=== PATIENT | male | born 1980 | race Caucasian/White ===

== ENCOUNTER 2024-01-18 21:26 | Emergency (ER) | payer BC ==
[~2024-01-18 21:26] MED LIST: Iopamidol 370 76% 100 ML VIAL ONE
[2024-01-18 23:06] LABS: #Basophils 0.04 10x3/uL (0.0-0.2); #Eosinophils 0.14 10x3/uL (0.0-0.5); #Monocytes 0.61 10x3/uL (0.0-1.1); #Neutrophils 2.62 10x3/uL (1.5-8.4); %Basophils 0.8 % (0.0-2.0); %Eosinophils 2.7 % (0.0-6.0); %Lymphocytes 34.7 % (18.0-47.0); %Monocytes 11.6 % (0.0-10.0); Hematocrit 36.7 % (38.8-50.0); Hemoglobin 12.5 g/dL (13.5-17.5); Mean Corpuscular HGB CONC 34.1 g/dL (32.0-36.0); Mean Corpuscular Hemoglobin 29.8 pg (27.0-33.0); Mean Corpuscular Volume 87.4 fL (81.2-95.1); Mean Platelet Volume 8.4 fL (7.4-10.4); Platelet Count 316 10x3/uL (150-450); RBC Distribution Width 11.6 % (11.5-14.5); White Blood Cell (WBC) Count 5.2 10x3/uL (3.5-10.5)
[2024-01-18 23:21] LABS: ALT (SGPT) 18 U/L (8-55); AST (SGOT) 18 U/L (5-34); Albumin 4.3 g/dL (3.5-5.0); Alkaline Phosphatase 44 U/L (40-110); Anion Gap 11 mmol/L (10-20); BUN (Urea Nitrogen) 6 mg/dL (8.9-20.6); Bilirubin, Total 0.6 mg/dL (0.2-1.2); Calc. Creatinine Clearance 0 mL/min (70-130); Calcium 9.3 mg/dL (7.8-10.44); Carbon Dioxide 29 mmol/L (22-29); Chloride 98 mmol/L (98-107); Estimated GFR 115; Globulin 2.5 g/dL (2.4-3.5); Glucose 85 mg/dL (70-105); Potassium 3.7 mmol/L (3.5-5.1); Protein, Total 6.8 g/dL (6.0-8.3); Sodium 134 mmol/L (136-145)
== END 2024-01-19 02:48 | disposition home or self-care (01) ==
LOC: CSHERS 21:26
DX: K59.00 Constipation, unspecified (principal); I10 Essential (primary) hypertension; F17.220 Nicotine dependence, chewing tobacco, uncomplicated; F17.290 Nicotine dependence, other tobacco product, uncomplicated
CPT/HCPCS: 74177; 80053; 85025; 96360; Q9967

== ENCOUNTER 2024-01-20 20:04 | Inpatient (IN) | payer BC ==
[2024-01-20] MEDS ORDERED: Ketorolac Tromethamine 30 MG (1 mL) VIAL ONE (21:10)
[2024-01-20] MEDS ORDERED: Ondansetron PF 4 MG/2 ML Vial ONE ×2 (21:10→22:23)
[2024-01-20 21:13] LABS: #Basophils 0.04 10x3/uL (0.0-0.2); #Eosinophils 0.01 10x3/uL (0.0-0.5); #Monocytes 0.57 10x3/uL (0.0-1.1); #Neutrophils 6.66 10x3/uL (1.5-8.4); %Basophils 0.5 % (0.0-2.0); %Eosinophils 0.1 % (0.0-6.0); %Lymphocytes 13.2 % (18.0-47.0); %Monocytes 6.8 % (0.0-10.0); %Neutrophils 79.3 % (40.0-75.0); Hematocrit 37.8 % (38.8-50.0); Hemoglobin 12.8 g/dL (13.5-17.5); Mean Corpuscular HGB CONC 33.9 g/dL (32.0-36.0); Mean Corpuscular Hemoglobin 29.6 pg (27.0-33.0); Mean Corpuscular Volume 87.5 fL (81.2-95.1); Mean Platelet Volume 8.7 fL (7.4-10.4); Platelet Count 347 10x3/uL (150-450); RBC Distribution Width 11.8 % (11.5-14.5); Red Blood Cell (RBC) Count 4.32 10x6/uL (4.32-5.72); White Blood Cell (WBC) Count 8.4 10x3/uL (3.5-10.5)
[2024-01-20 21:30] LABS: ALT (SGPT) 17 U/L (8-55); AST (SGOT) 17 U/L (5-34); Albumin 4.5 g/dL (3.5-5.0); Alkaline Phosphatase 45 U/L (40-110); Anion Gap 15 mmol/L (10-20); BUN (Urea Nitrogen) 4 mg/dL (8.9-20.6); Bilirubin, Total 0.6 mg/dL (0.2-1.2); Calc. Creatinine Clearance 0 mL/min (70-130); Calcium 9.6 mg/dL (7.8-10.44); Carbon Dioxide 24 mmol/L (22-29); Chloride 104 mmol/L (98-107); Estimated GFR 115; Globulin 2.4 g/dL (2.4-3.5); Glucose 106 mg/dL (70-105); Lipase 31 U/L (8-78); Potassium 3.9 mmol/L (3.5-5.1); Protein, Total 6.9 g/dL (6.0-8.3); Sodium 139 mmol/L (136-145)
[2024-01-20] MEDS ORDERED: Midazolam HCl 10 mg/2 ml Vial ONE (21:53)
[2024-01-21 00:49] LABS: Bilirubin Neg (Negative); Blood, Urine Negative (Negative); Clarity Clear (Clear); Glucose, Urine (Dipstick) Normal (Negative); Ketone, Urine 15 mg/dL (Negative); Leukocyte Negative (Negative); Nitrite Negative (Negative); Protein, Urine (Dipstick) Negative (Neg-Trace); Urobilinogen Normal mg/dL (Less than 2)
[2024-01-21] MEDS ORDERED: Metoclopramide HCl 10 MG (2 mL) VIAL ONE (01:03)
[2024-01-21 01:22] LABS: CAUTI Indications for Culture Alt mental st,lethar; RBC/HPF None Seen HPF (0-3); Squamous Epithelial 0-3 HPF (0-3); WBC/HPF 0-3 HPF (0-3)
[2024-01-21 01:23] LABS: Bacteria/HPF Rare-Few HPF (None Seen); Urine Culture Reflex No No
[2024-01-21] MEDS ORDERED: Ketorolac Tromethamine 30 MG (1 mL) VIAL IVP PRN (02:48)
[2024-01-21] MEDS ORDERED: Acetaminophen 325 MG TAB PO PRN (02:48)
[2024-01-21 03:47] VITALS: BMI 25.8
[2024-01-21] MEDS: Promethazine HCl 12.5 MG in Sodium Chloride 0.9% 100 ML IVPB ONE (04:01)
[2024-01-21] MEDS: Lactated Ringer's 1,000 ML IV SCH (04:13)
[2024-01-21] MEDS: Ondansetron PF 4 MG/2 ML Vial IVP PRN (04:17)
[2024-01-21 04:24] LABS: Anion Gap 17 mmol/L (10-20); BUN (Urea Nitrogen) 5 mg/dL (8.9-20.6); Calc. Creatinine Clearance 148 mL/min (70-130); Calcium 9.2 mg/dL (7.8-10.44); Carbon Dioxide 21 mmol/L (22-29); Chloride 104 mmol/L (98-107); Estimated GFR 116; Glucose 105 mg/dL (70-105); Magnesium 1.9 mg/dL (1.6-2.6); Sodium 138 mmol/L (136-145)
[2024-01-21] MEDS: Lactulose 20 GM (30 mL) UDCUP PO SCH (04:38)
[2024-01-21] MEDS: Mineral Oil ENEMA ONE (05:10)
[2024-01-21] MEDS: GoLYTELY 4,000 ml Bottle PO ONE (05:16)
[2024-01-21] MEDS: GoLYTELY 4,000 ml Bottle PO SCH ×2 (10:03→14:57)
[2024-01-21] MEDS: Escitalopram Oxalate 10 mg Tablet PO SCH (10:05)
[2024-01-21] MEDS: Gabapentin 300 MG CAP PO SCH (10:05)
[2024-01-21] MEDS: Senokot S 8.6-50 MG TAB PO PRN (10:05)
[2024-01-21] MEDS: Losartan 25 MG TAB PO SCH (10:05)
[2024-01-21] MEDS: Pantoprazole 40 MG VIAL IVP SCH (10:06)
[2024-01-21 11:44] VITALS: BMI 25.8
[2024-01-21] MEDS: valACYclovir 500 MG TAB PO SCH (13:51)
[2024-01-21] MEDS: Naloxegol 12.5 MG TAB PO SCH (14:56)
[2024-01-21] MEDS: traZODone HCl 50 MG TAB PO SCH (22:16)
[2024-01-21] MEDS: Melatonin 3 MG TAB PO SCH (22:17)
[2024-01-22] MEDS: Naloxegol 12.5 MG TAB PO SCH (08:58)
[2024-01-22] MEDS: Melatonin 3 MG TAB PO SCH (22:41)
[2024-01-22] MEDS: traZODone HCl 50 MG TAB PO SCH (22:41)
[2024-01-23 12:07] VITALS: BP 128/85; TEMP 96.6
== END 2024-01-23 15:00 | disposition home or self-care (01) | DRG 392 ==
LOC: CSHERS 20:04 → CSHTELE 01-21 02:42 → OBSVTOIN 01-22 10:54
PROVIDERS: ADMIT Student in an Organized Health Care Education/Training Program; ATTEND Internal Medicine
DX: K59.03 Drug induced constipation (principal); F33.9 Major depressive disorder, recurrent, unspecified; T40.2X5A Adverse effect of other opioids, initial encounter; I10 Essential (primary) hypertension; G89.4 Chronic pain syndrome; D64.9 Anemia, unspecified; E05.80 Other thyrotoxicosis without thyrotoxic crisis or storm; Z88.1 Allergy status to other antibiotic agents; Z88.8 Allergy status to other drugs, medicaments and biological substances; Z88.2 Allergy status to sulfonamides; F41.9 Anxiety disorder, unspecified; Z98.890 Other specified postprocedural states
CPT/HCPCS: 36415; 74177; 80048; 80053; 81001; 83690; 83735; 84439; 84443; 84480; 85025; 96360; 96374; 96375; 96376; G0378; J1885; J2250; J2405; J2470; J2550; J2765; J7120; Q9967